=== PATIENT | male | born 1985 | race Caucasian/White ===

== ENCOUNTER 2016-09-03 15:06 | Inpatient (IN) | payer MEDICAID, OTHER ==
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
[2016-09-03] MEDS ORDERED: MAGNESIUM HYDROXIDE 2,400 MG/10 ML CUP PO PRN (20:46)
[2016-09-03] MEDS ORDERED: ACETAMINOPHEN TAB 325 MG TAB PO PRN (20:46)
[2016-09-03] MEDS ORDERED: MAG HYDROX/AL HYDROX/SIMETH 30 ML CUP PO PRN (20:46)
[2016-09-03] MEDS ORDERED: LORazepam 2 MG/ML SYRINGE IM PRN (20:50)
[2016-09-03 21:04] LABS: Appearance,Urine Clear (Clear); Bilirubin,Urine Negative (Negative); Glucose,Urine (UA) Negative (Negative); Ketones,Urine Negative (Negative); Leukocyte Esterase,Urine Negative (Negative); Nitrite,Urine Negative (Negative); PH, Urine 6.5 (5.0-8.0); Protein,Urine Negative (Negative); Specific Gravity,Urine 1.015 (1.001-1.035); UA Billing (MACRO vs. MICRO) CHEM; Urobilinogen,Urine <2.0 mg/dL (<2.0)
[2016-09-04] MEDS ORDERED: QUEtiapine 200 MG TAB PO SCH (09:00)
[2016-09-04] MEDS: PANTOPRAZOLE 40 MG TABLET PO SCH ×2 (09:18→09:25)
[2016-09-04 09:23] LABS: Basophils % (A) 1 %; Eosinophils # (A) 0.1 k/uL (0-0.7); Eosinophils % (A) 2 %; HCT 45.2 % (39.0-53.0); HDW 2.75; HGB 14.7 gm/dL (13.0-17.5); Luc # (Auto) 0.23; Luc % (Auto) 4; Lymphocytes # (A) 2.2 k/uL (1.0-4.8); Lymphocytes % (A) 37 %; MCH 29.8 pg (25.0-35.0); MCHC 32.6 g/dL (31.0-37.0); MCV 91.3 fL (80.0-100.0); Mean Platelet Volume 8.2; Monocytes # (A) 0.4 k/uL (0-1.0); Monocytes % (A) 7 %; Neutrophils # (A) 2.9 k/uL (1.3-7.7); Neutrophils % (A) 50 %; RBC 4.95 m/uL (4.30-5.90); RDW 13.4 % (11.5-15.5); WBC 5.9 k/uL (3.8-10.6); WBC (Perox) 5.99
[2016-09-04 09:25] LABS: ALT 39 U/L (21-72); AST 27 U/L (17-59); Alkaline Phosphatase 92 U/L (38-126); Anion Gap 11 mmol/L; Blood Urea Nitrogen 14 mg/dL (9-20); Calcium 9.9 mg/dL (8.4-10.2); Carbon Dioxide 26 mmol/L (22-30); Chloride 104 mmol/L (98-107); Glucose 86 mg/dL (74-99); Non-African American GFR(MDRD) >60 (>60 ml/min/1.73 sqM); Potassium 4.4 mmol/L (3.5-5.1); Sodium 141 mmol/L (137-145); Total Protein 7.8 g/dL (6.3-8.2)
[2016-09-04] MEDS: FAMOTIDINE 20 MG TAB PO SCH (09:25)
[2016-09-04] MEDS: ATENOLOL 25 MG TAB PO SCH (09:25)
[2016-09-04] MEDS: NICOTINE 14MG/24HR PATCH TRANSDERM SCH (09:26)
[2016-09-04] MEDS: FLUoxetine HCL 20 MG CAP PO SCH (09:26)
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
[2016-09-04] MEDS: LORazepam 1 MG TAB PO PRN (18:12)
[2016-09-04] MEDS ORDERED: QUEtiapine 50 MG TAB PO STA (20:59)
[2016-09-05] MEDS: FLUoxetine HCL 20 MG CAP PO SCH (08:58)
[2016-09-05] MEDS: FAMOTIDINE 20 MG TAB PO SCH (08:59)
[2016-09-05] MEDS: ATENOLOL 25 MG TAB PO SCH (08:59)
[2016-09-05] MEDS: PANTOPRAZOLE 40 MG TABLET PO SCH (08:59)
[2016-09-05] MEDS: LORazepam 1 MG TAB PO PRN ×2 (09:00→16:35)
[2016-09-05] MEDS: NICOTINE 14MG/24HR PATCH TRANSDERM SCH (09:03)
--- NOTE | 2016-09-05 09:29 | P.PN ---
Progress Note - Text Interval history: The patient is found in group he follows me to an interview room. He states his mood continues to be depressed he feels anxious he reports having racing thoughts. He states he has the same recurring negative thoughts that are "my own voice". He reports sleeping a significant portion of yesterday but he plans on attending groups today. He reports a long history of having anxiety and panic attacks as well as ADHD symptoms. He states Xanax is very helpful for anxiety. He is aware that social work has arranged a support meeting for Thursday. He asks to go to the [facility] program upon discharge from this unit. We discussed his legal issues he states he did miss a court date and may have a warrant for his arrest. Mental status exam: The patient is alert he seated calmly eye contact is intermittent. He reports his mood is depressed and anxious he does feel hopeless. He reports feeling safe here in the hospital in terms of suicidal thoughts. He is endorsing no thoughts of harming others. He endorses feelings of anxiousness feeling as though he is being watched/judged. He continues to report hearing his own voice saying negative things. He demonstrates no verbal or physical aggressiveness. He maintains a constricted affect. No tearfulness. Insight and judgment limited. He remains oriented to person place and date. Plan: The patient will continue on his current medications we will increase the Seroquel to 50 mg in the morning 200 mg at bedtime. He feels that the Seroquel improved his mood reduce his anxiety and helps reduce his ruminative thinking. Suggestions for cognitive reframing were offered. We will continue to monitor him for safety and encourage his participation in the milieu. We will not restart a stimulant medication while here in the mental health unit. We will monitor his use of Ativan. Vital signs reviewed there is no evidence of alcohol withdrawal.
[2016-09-05] MEDS: QUEtiapine 50 MG TAB PO SCH (09:44)
[2016-09-05] MEDS: ZIPRASIDONE 20 MG VIAL IM PRN (18:49)
[2016-09-05] MEDS: QUEtiapine 200 MG TAB PO SCH (20:34)
[2016-09-06] MEDS: ATENOLOL 25 MG TAB PO SCH (08:19)
[2016-09-06] MEDS: NICOTINE 14MG/24HR PATCH TRANSDERM SCH (08:19)
[2016-09-06] MEDS: PANTOPRAZOLE 40 MG TABLET PO SCH (08:19)
[2016-09-06] MEDS: FAMOTIDINE 20 MG TAB PO SCH (08:19)
[2016-09-06] MEDS: FLUoxetine HCL 20 MG CAP PO SCH (08:19)
[2016-09-06] MEDS: LORazepam 1 MG TAB PO PRN ×2 (08:20→15:24)
[2016-09-06] MEDS: QUEtiapine 50 MG TAB PO SCH (09:13)
--- NOTE | 2016-09-06 14:24 | CONS ---
DATE OF CONSULTATION: CHIEF COMPLAINT: Depression with acute psychosis and history of alcohol and opiate abuse. HISTORY OF PRESENT ILLNESS: This is another admission for this 31-year-old white male. He presented to the emergency room with depression, anxiety and he has been drinking heavily. He has a history of alcohol and opiate abuse. REVIEW OF SYSTEMS: He denies any headaches, syncope, seizures, focal neurologic deficits, change in vision or the hearing, chest pain, shortness of breath, cough, hemoptysis, heart disease, chest pain, palpitations, angina, murmurs, orthopnea, PND, abdominal pain, vomiting, hematemesis, melena, hematochezia, jaundice, diverticulosis, diverticulitis, hemorrhoids, cirrhosis, hepatitis, etc. He has had no renal disease or diabetes. Past medical history, family history, personal and social histories are unremarkable and otherwise noncontributory. He is apparently allergic to LAMICTAL. I do not know if he is taking any medications at this time. He has been on Seroquel in the past including also being on the atenolol, Prozac, omeprazole and Xanax. He does smoke and he drinks heavily. PHYSICAL EXAM: Respirations are 34, pulse is 88, blood pressure 166/90 and he is afebrile. GENERAL: He appeared to be well developed, well nourished, in no acute distress. Skin color is normal. Skin is warm and dry. Lymph nodes are not enlarged. Head, ears, eyes, nose, mouth, and throat were normal. Neck veins are not distended. Thyroid is not enlarged. Chest is clear. Cardiac exam is normal. ABDOMEN: Soft, nontender. EXTREMITIES: Normal. IMPRESSION: Major depression with substance abuse (alcohol and cocaine). RECOMMENDATION: None at this time.
--- NOTE | 2016-09-06 16:04 | P.PN ---
Progress Note - Text Interval history: Patient reports that he is feeling more down today. Talks about having anxiety. He relays that his mom and his girlfriend are coming to visit tonight which he seems excited about. He does feel Seroquel starting to work. He does not seem to voice any adverse psychotropic medication side effects. Patient seen in cross coverage for Dr. Calvin today. Mental status exam: He is alert and cooperative with the interview. Speech is fluent, not rapid or pressured. Thought processes organized. His affect is restricted. His mood he describes as down. He denies any thoughts of harm to self or others. He relays that sometimes he can get agitated but he doesn't see that happening today. He does not show any evidence of psychosis or current agitation. Plan: Maintain current psychotropic medications. Patient also has Ativan ordered as needed. We'll continue to monitor his mood and monitor for any medication side effects. Continue to cover this patient for Dr. Calvin over the weekend
[2016-09-06] MEDS: QUEtiapine 200 MG TAB PO SCH (20:29)
[2016-09-06] MEDS ORDERED: WATER FOR INJECTION, STERILE 10 ML IV ONE (20:32)
[2016-09-06] MEDS ORDERED: ZIPRASIDONE 20 MG VIAL IM ONE (20:32)
[2016-09-06] MEDS: ZIPRASIDONE 20 MG VIAL IM PRN (20:33)
[2016-09-07] MEDS: NICOTINE 14MG/24HR PATCH TRANSDERM SCH (09:09)
[2016-09-07] MEDS: FAMOTIDINE 20 MG TAB PO SCH (09:09)
[2016-09-07] MEDS: FLUoxetine HCL 20 MG CAP PO SCH (09:10)
[2016-09-07] MEDS: ATENOLOL 25 MG TAB PO SCH (09:10)
[2016-09-07] MEDS: PANTOPRAZOLE 40 MG TABLET PO SCH (09:10)
[2016-09-07] MEDS: QUEtiapine 50 MG TAB PO SCH (10:06)
[2016-09-07] MEDS: LORazepam 1 MG TAB PO PRN (11:47)
[2016-09-07] MEDS: ZIPRASIDONE 20 MG VIAL IM PRN (15:00)
--- NOTE | 2016-09-07 17:55 | P.PN ---
Progress Note - Text Interval history: Patient seen today in cross coverage for Dr. Calvin. He reports that he has been feeling stressed and agitated some today. He did have a family meeting with his mom which was cut short, the patient states that he was agitated. He did receive a dose of Geodon. He was found in his room lying in bed. He did awaken with name-calling was agreeable to come to the interview room. He does not seem to voice any adverse psychotropic medication side effects. Mental status exam: He was found in his room lying in bed. He did awaken with name-calling was agreeable to come to the interview room. His mood he describes as been cut stress today. He denies any current thoughts of harm to self or others. He does not show any current agitation. He does not verbalize any hallucinations and does not show any active evidence of psychosis. Plan: We'll maintain current psychotropic medications. We'll monitor for any agitation. We'll monitor for any medication side effects. Dr. Calvin to resume care this patient starting tomorrow.
[2016-09-07] MEDS: QUEtiapine 200 MG TAB PO SCH (21:23)
[2016-09-08 06:48] VITALS: TEMP 97.6
[2016-09-08] MEDS: NICOTINE 14MG/24HR PATCH TRANSDERM SCH (08:35)
[2016-09-08] MEDS: LORazepam 1 MG TAB PO PRN ×3 (08:36→22:11)
[2016-09-08] MEDS: QUEtiapine 50 MG TAB PO SCH ×2 (08:36→11:41)
[2016-09-08] MEDS: FAMOTIDINE 20 MG TAB PO SCH (08:36)
[2016-09-08] MEDS: FLUoxetine HCL 20 MG CAP PO SCH (08:36)
[2016-09-08] MEDS: ATENOLOL 25 MG TAB PO SCH (08:36)
[2016-09-08] MEDS: PANTOPRAZOLE 40 MG TABLET PO SCH (08:36)
--- NOTE | 2016-09-08 09:44 | P.PN ---
Progress Note - Text Interval history: The patient is found in the hallway he follows me to an interview room. He states his mood has been "up and down". He has feelings of worthlessness and at times doesn't want to live. He continues to have anxiety on a regular basis. He states he's always worried that people are trying to do something to him are judging him in a negative way. We discussed that he may be having unrealistic automatic thoughts and he agrees that is possible but he has struggled with trying to re-train them. That frustration will often lead to him feeling aggressive. He will struggle with racing thoughts still. He was glad that he was able to sleep better last night. We again reviewed his medications specifically the Prozac and the Seroquel. Mental status exam: The patient is alert he seated calmly in his chair is dressed in his own clothing hygiene and grooming are good. He reports his mood is up and down he has feelings of worthlessness and thoughts of dying. He is reporting no homicidal ideation intent or plan. Affect is constricted. Insight and judgment limited. He is reporting no auditory or visual hallucinations there appears to be no specific delusions but his anxiety symptoms cause him to feel insecure. He demonstrates no verbal or physical aggressiveness in session however he states he still has those thoughts and a nonspecific fashion. Plan: The patient will continue on his current medications I will titrate the Seroquel further to add another 50 mg at 1 PM. We discussed possibly increasing the Prozac. We will continue monitor him for safety and encourage his participation in the milieu vital signs reviewed. I anticipate a discharge sometime this week we will need to continue assessing for safety.
[2016-09-08] MEDS: QUEtiapine 200 MG TAB PO SCH (20:17)
[2016-09-09 06:34] VITALS: RESP 16
[2016-09-09] MEDS: QUEtiapine 50 MG TAB PO SCH ×2 (09:06→09:13)
[2016-09-09] MEDS: PANTOPRAZOLE 40 MG TABLET PO SCH (09:06)
[2016-09-09] MEDS: FLUoxetine HCL 20 MG CAP PO SCH (09:06)
[2016-09-09] MEDS: ATENOLOL 25 MG TAB PO SCH (09:06)
[2016-09-09] MEDS: NICOTINE 14MG/24HR PATCH TRANSDERM SCH (09:06)
[2016-09-09] MEDS: FAMOTIDINE 20 MG TAB PO SCH (09:06)
[2016-09-09] MEDS: LORazepam 1 MG TAB PO PRN (09:07)
[2016-09-09 09:16] VITALS: BP 135/69; PULSE 93
--- NOTE | 2016-09-09 10:05 | P.DS ---
Providers Date of admission: 09/03/16 19:55 Expected date of discharge: 09/09/16 Attending physician: Rodney Calvin Consults: 09/03/16 20:46 Consult Physician Routine Consulting Provider: Jered Marino Consult Reason/Comments: follow up H & P Do you want consulting provider notified?: Yes Primary care physician: Jered Marino - Discharge Diagnosis(es) (1) Bipolar 2 disorder, major depressive episode Current Visit: Yes Status: Acute Priority: High (2) Alcohol use disorder Current Visit: Yes Status: Acute Priority: High (3) Opiate dependence Current Visit: Yes Status: Acute Priority: Medium (4) Generalized anxiety disorder Current Visit: Yes Status: Acute Priority: High Hospital Course: Brief summary of admission note: The patient is a 31-year-old single male who was admitted to the mental health unit through the emergency room with the complaint of suicidal ideation. The patient had endorsed a depressed mood with tearfulness impaired sleep and impaired appetite and low energy. He described having hopeless thoughts and suicidal ideation. He described having excessive anxiety that was present on a daily basis. He reported episodes that seem similar to panic attacks. No symptoms of psychosis were reported. He does report difficulty struggling with anger. For full details please refer to my psychiatric evaluation dated 09/04/2016. Summary of hospital course: The patient was admitted to the mental health unit voluntarily. We reviewed his presenting symptoms and medication options. He had previously been treated with some success with Prozac and Seroquel and we restarted those medications. The Seroquel was titrated during the course of his stay and he felt that it helped reduce his anxiety anger and impulsivity. He reported that his mood is been stabilizing. The patient does appear to have cluster B personality disorder traits. We discussed strategies for cognitive reframing. We discussed his alcohol use he does not wish to participate in inpatient chemical dependency treatment. He is willing to work with an outpatient therapist to address his mental health symptoms. He underwent a routine medical consultation. Although there was some fluctuation during the course of the hospitalization he reported improvement of mood while here. He is now demonstrating future oriented thinking. He was previously concerned about legal charges that are awaiting him and he now plans on contacting his finance attorney and presenting to the court as there is likely a warrant for his arrest. Social work did attempt to facilitate a support meeting over this past weekend that was not productive as the patient was upset his girlfriend did not attend. Mental status exam: The patient is alert he seated calmly eye contact is appropriate speech is fluent nonpressured. He reports his mood is "better" affect is more euthymic today. He feels that his mood is stable he is endorsing no homicidal ideation intent or plan. He feels the Seroquel has helped him control his aggressive impulses better. He is endorsing no auditory or visual hallucinations he is endorsing no specific delusions. There is no evidence of psychosis. He does not appear to be hypomanic or manic. Insight and judgment improved. He is demonstrating no verbal or physical aggressiveness. He reports no suicidal ideation intent or plan. Impressions 1. Bipolar 2 disorder most recent depressed, generalized anxiety disorder, rule out ADHD, rule out PTSD, alcohol use disorder, opiate abuse disorder 2. Antisocial personality disorder traits 3. History of hypertension 4. Psychosocial dysfunction due to psychiatric symptoms including use of alcohol opiates, recent legal interaction Plan: The patient will be discharged mental health unit today. He was offered opportunity to have another support meeting but he is refusing. He will be continued on Prozac 20 mg daily Seroquel 50 mg twice daily 200 mg at bedtime. He was offered the opportunity to attend inpatient chemical dependency treatment but he does not wish to. He is willing to follow-up with an outpatient clinician for mental health services to address his mood symptoms anxiety and substance use issues. There is no imminent safety risk he is appropriate for transition to outpatient care. Use of alcohol or opiates does elevate his safety risk and this was discussed. He is instructed to return to the hospital with any acute safety concerns. Patient Condition at Discharge: Stable Plan - Discharge Summary New Discharge Prescriptions: Atenolol [Tenormin] 25 mg PO DAILY #30 tab FLUoxetine HCL [PROzac] 20 mg PO DAILY #30 cap Nicotine 14Mg/24Hr Patch [Habitrol] 1 patch TRANSDERM DAILY #14 patch QUEtiapine [SEROquel] 200 mg PO HS #30 tab QUEtiapine [SEROquel] 50 mg PO BID #60 tab Discharge Medication List Omeprazole 20 mg PO DAILY 09/03/16 [History] Ranitidine HCl [Zantac] 150 mg PO DAILY 09/03/16 [History] Atenolol [Tenormin] 25 mg PO DAILY #30 tab 09/09/16 [Rx] FLUoxetine HCL [PROzac] 20 mg PO DAILY #30 cap 09/09/16 [Rx] Nicotine 14Mg/24Hr Patch [Habitrol] 1 patch TRANSDERM DAILY #14 patch 09/09/16 [ Rx] QUEtiapine [SEROquel] 50 mg PO BID #60 tab 09/09/16 [Rx] QUEtiapine [SEROquel] 200 mg PO HS #30 tab 09/09/16 [Rx] Follow up Appointment(s)/Referral(s): Jered Marino MD [Primary Care Provider] - 1 Week
== END 2016-09-09 15:14 | disposition home or self-care (01) | DRG 885 ==
LOC: EC 15:06 → 3MHU 19:55
PROVIDERS: ADMIT Psychiatry & Neurology Psychiatry; ATTEND Psychiatry & Neurology Psychiatry
DX: F31.81 Bipolar II disorder (principal); F11.20 Opioid dependence, uncomplicated; R45.851 Suicidal ideations; F41.1 Generalized anxiety disorder; I10 Essential (primary) hypertension; F60.2 Antisocial personality disorder; F90.9 Attention-deficit hyperactivity disorder, unspecified type; F14.10 Cocaine abuse, uncomplicated; F41.0 Panic disorder [episodic paroxysmal anxiety]; T47.1X6A Underdosing of other antacids and anti-gastric-secretion drugs, initial encounter; T43.626A Underdosing of amphetamines, initial encounter; T47.0X6A Underdosing of histamine H2-receptor blockers, initial encounter; T44.7X6A Underdosing of beta-adrenoreceptor antagonists, initial encounter; T43.596A Underdosing of other antipsychotics and neuroleptics, initial encounter; T43.226A Underdosing of selective serotonin reuptake inhibitors, initial encounter; F60.89 Other specific personality disorders; F10.10 Alcohol abuse, uncomplicated; F43.10 Post-traumatic stress disorder, unspecified; K21.9 Gastro-esophageal reflux disease without esophagitis; M54.2 Cervicalgia; M54.5 Low back pain; G89.29 Other chronic pain; F17.200 Nicotine dependence, unspecified, uncomplicated; Z81.8 Family history of other mental and behavioral disorders; Z82.49 Family history of ischemic heart disease and other diseases of the circulatory system; Z62.810 Personal history of physical and sexual abuse in childhood; Z88.8 Allergy status to other drugs, medicaments and biological substances; Z86.19 Personal history of other infectious and parasitic diseases; Z87.828 Personal history of other (healed) physical injury and trauma; Z87.81 Personal history of (healed) traumatic fracture; Z87.19 Personal history of other diseases of the digestive system; Z91.5 Personal history of self-harm; Z56.0 Unemployment, unspecified; Z63.79 Other stressful life events affecting family and household; Z81.1 Family history of alcohol abuse and dependence; Z81.3 Family history of other psychoactive substance abuse and dependence; Z83.49 Family history of other endocrine, nutritional and metabolic diseases; Z91.14 Patient's other noncompliance with medication regimen; Z91.19 Patient's noncompliance with other medical treatment and regimen; Z65.3 Problems related to other legal circumstances
CPT/HCPCS: 80053; 80306; 81003; 82075; 84443; 85025; 99285